=== PATIENT | male | born 1965 | race Caucasian/White ===

== ENCOUNTER 2022-07-30 08:34 | Outpatient (CLI) | payer OTHER, SELFPAY ==
[2022-07-30 19:46] LABS: Basophils Percent Auto 0.6 % (0.2-1.2); Eosinophils Absolute Auto 0.2 K/mm3 (0-0.3); Eosinophils Percent Auto 4.3 % (0-4.4); Hematocrit 49.4 % (42.0-52.0); Hemoglobin 16.1 g/dL (14.0-18.0); Immature Granulocyte Absolute 0.02 K/mm3 (0.00-0.031); Immature Granulocyte Percent A 0.4 % (0-0.5); Lymphocytes Absolute Auto 1.52 K/mm3 (0.9-3.2); Lymphocytes Percent Auto 28.4 % (18.3-44.2); Mean Corpuscular HGB Conc 32.6 g/dl (32-36); Mean Corpuscular Hemoglobin 31.6 pg (26-34); Mean Corpuscular Volume 96.9 fl (80-100); Mean Platelet Volume 10.3 fl (7.4-10.4); Monocytes Absolute Auto 0.4 K/mm3 (0.1-0.6); Neutrophils Absolute Auto 3.1 K/mm3 (1.3-6.7); Neutrophils Percent Auto 58.3 % (45.5-73.1); Platelet Count Result 195 k/mm3 (150-375); Red Cell Distribution Width 12.3 % (11.5-14.5); White Blood Count 5.4 K/mm3 (4.5-10.0)
[2022-07-30 20:33] LABS: Alanine Aminotransferase 27 U/L (6-50); Albumin Level 4.3 g/dL (3.5-5.1); Alkaline Phosphatase 77 U/L (38-126); Anion Gap 7 mmol/L (8-16); Aspartate Amino Transferase 40 U/L (17-59); Bilirubin,Total 0.4 mg/dL (0.2-1.3); Blood Urea Nitrogen 14 mg/dL (9-20); Calcium 8.5 mg/dL (8.4-10.2); Carbon Dioxide 26 mmol/L (22-30); Chloride 106 mmol/L (98-107); Cholesterol 163 mg/dL (0-200); Estimated Glomerular Filt Rate > 60; Glucose 95 mg/dL (65-110); HDL Direct 51 mg/dL; Potassium 4.1 mmol/L (3.4-5.0); Sodium 139 mmol/L (137-145); Triglycerides 65 mg/dL (<150)
[2022-07-30 20:45] LABS: LDL Cholesterol Direct 84 mg/dL
[2022-07-30 21:03] LABS: Prostate Specific Antigen 0.6 ng/mL (< OR = 4.0)
[2022-08-03 16:21] LABS: Testosterone Total 612 ng/dL (250-1100)
== END 2022-07-30 08:35 | disposition home or self-care (01) ==
PROVIDERS: PCP Family Medicine; Visit Provider Family Medicine
DX: Z00.00 Encounter for general adult medical examination without abnormal findings (principal); Z12.5 Encounter for screening for malignant neoplasm of prostate; N52.9 Male erectile dysfunction, unspecified; R68.82 Decreased libido; F41.9 Anxiety disorder, unspecified
CPT/HCPCS: 36415; 80053; 80061; 84153; 84402; 84403; 85025; G0103

== ENCOUNTER 2022-08-05 08:16 | Outpatient (CLI) | payer OTHER, SELFPAY ==
--- NOTE | ~2022-08-05 | US_ITS ---
EXAMINATION: US soft tissue abdomen DATE: 08/05/2022 08:34 INDICATION: Unspecified abdominal hernia without obstruction. TECHNIQUE: Multiple grayscale and Doppler ultrasound images of the abdomen were obtained. COMPARISON: None FINDINGS: To the right of midline, there is a 5.6 x 3.2 x 4.2 cm hypoechoic mass in anterior abdomina l wall. IMPRESSION: 1. 5.6 cm hypoechoic mass in anterior abdominal wall to the right of the midline. The differential di agnosis includes inflammation/scarring, malignancy, and hernia. CT is recommended. Reviewed, dictated and finalized at location A. [facility] IMPRESSION: 1. 5.6 cm hypoechoic mass in anterior abdominal wall to the right of the midlin e. The differential diagnosis includes inflammation/scarring, malignancy, and h ernia. CT is recommended.
== END 2022-08-05 08:17 ==
PROVIDERS: PCP Family Medicine; Visit Provider Family Medicine
DX: R19.09 Other intra-abdominal and pelvic swelling, mass and lump (principal)
CPT/HCPCS: 76705